=== PATIENT | female | born 1985 | race Caucasian/White ===

== ENCOUNTER 2017-01-19 07:46 | Inpatient (IN) | payer BC ==
[2017-01-19] MEDS ORDERED: OXYTOCIN 10 UNIT/ML 1 ML VIAL IM PRN (10:47)
[2017-01-19] MEDS ORDERED: METHYLERGONOVINE 0.2 MG/ML 1 ML AMP IM PRN (10:47)
[2017-01-19] MEDS ORDERED: LIDOCAINE 1% (PF) 10 MG/ML (30 ML SDV) SQ PRN (10:47)
[2017-01-19] MEDS ORDERED: TERBUTALINE 1 MG/ML VIAL SQ PRN (10:47)
[2017-01-19] MEDS ORDERED: CARBOPROST TROMETHAMINE 250 MCG/ML 1 ML AMP IM PRN (10:47)
[2017-01-19] MEDS ORDERED: PENICILLIN G POTASSIUM 5,000,000 UNIT in DEXTROSE 5% IN WATER 100 ML IV STA ×2 (10:50)
[2017-01-19] MEDS: LACTATED RINGERS 1,000 ML IV SCH ×2 (11:00→13:11)
[2017-01-19 11:23] LABS: Basophils % (A) 0 %; CH 30.6; CHCM 32.6; Eosinophils # (A) 0.1 k/uL (0-0.7); Eosinophils % (A) 0 %; HCT 38.8 % (34.0-46.0); HDW 2.46; HGB 12.5 gm/dL (11.4-16.0); Luc # (Auto) 0.21; Luc % (Auto) 1; Lymphocytes # (A) 1.8 k/uL (1.0-4.8); Lymphocytes % (A) 11 %; MCH 30.5 pg (25.0-35.0); MCHC 32.3 g/dL (31.0-37.0); MCV 94.4 fL (80.0-100.0); Mean Platelet Volume 7.1; Monocytes # (A) 0.6 k/uL (0-1.0); Monocytes % (A) 4 %; Neutrophils # (A) 12.9 k/uL (1.3-7.7); Neutrophils % (A) 83 %; RBC 4.11 m/uL (3.80-5.40); RDW 13.6 % (11.5-15.5); WBC 15.5 k/uL (3.8-10.6); WBC (Perox) 15.82
[2017-01-19] MEDS ORDERED: BUTORPHANOL 1 MG/ML 1 ML VIAL IV PRN (12:19)
[2017-01-19 12:21] VITALS: BMI 31.8
--- NOTE | 2017-01-19 12:26 | P.HPOB ---
History of Present Illness H&P Date: 01/19/17 Chief Complaint: 37-0/7 weeks, labor The patient is a 31-year-old 3 para 0111 who presents at 37-0/7 weeks as established by last menstrual period and confirmed by second trimester ultrasound. She reports having had moderate back pain and irregular cramping last evening but was able to sleep through the night. She awoke with increased contractions and discomfort and presented to labor and delivery. She presents to labor and delivery with irregular contractions and is found to have made cervical change in triage. Initially all signs were reassuring though she has had occasional episodes of flat heart tones with mild indeterminate decelerations. She made cervical change from 4-7 cm in the triage area and was admitted. She is known to be group B strep positive. Her has otherwise been uncomplicated and she has a history of a previous delivery at 36+ weeks. Obstetrical history 3 para 0111 with 1 previous 36+ week delivery with a history of rapid labor. She otherwise had one early spontaneous miscarriage not requiring D&C. Current statistics are listed in history of present illness. EDC of 02/09/2017 was established by last menstrual period and confirmed by second trimester ultrasound. Laboratory workup demonstrates a blood type of O+ with a negative antibody screen. Rubella status is immune. All other laboratory workup is normal aside from a positive urine culture for group B strep which was treated on several occasions during the . One hour Glucola was within normal limits and group B strep status is positive as noted above. Obstetrical history: Unremarkable with no history of any infections to include STDs area Review of Systems Review of systems is confined to history of present illness. Past Medical History Past Medical History: No Reported History History of Any Multi-Drug Resistant Organisms: None Reported Past Surgical History: No Surgical Hx Reported Past Anesthesia/Blood Transfusion Reactions: No Reported Reaction Past Psychological History: No Psychological Hx Reported Smoking Status: Never smoker Past Alcohol Use History: None Reported Past Drug Use History: None Reported Medications and Allergies Home Medications Medication Instructions Recorded Confirmed Type Pnv,Calcium 72/Iron/Folic Acid 1 tab PO DAILY 01/19/17 01/19/17 History [ Plus Tablet] Allergies Allergy/AdvReac Type Severity Reaction Status Date / Time No Known Allergies Allergy Verified 01/19/17 07:53 Exam - Vital Signs Vital signs: Intake and Output 06/11/0101/19/17 01/19/17 22:59 06:59 14:59 Other: Weight 100.698 kg Patient Weight 01/20/17 06:59 Weight 100.698 kg In general, this is a well-developed, well-nourished white female in no acute distress. Her heart has a regular rhythm and rate without murmur. Her lungs are clear to auscultation bilaterally in all [place]. Her abdomen is gravid, nondistended, has normal active bowel sounds, is soft, nontender, and without any palpable masses aside from uterine fundus. Her extremities are without any cyanosis, clubbing, or edema and are nontender to palpation bilaterally. Digital cervical examination performed by the nursing staff demonstrates her cervix to be 7 cm dilated, 70% dilated, with the vertex in presentation at -2 station. Results Result Diagrams: 01/19/17 11:00 Abnormal Lab Results - Last 24 Hours (Table) 01/19/17 Range/Units 11:00 WBC 15.5 H (3.8-10.6) k/uL Neutrophils # 12.9 H (1.3-7.7) k/uL Assessment and Plan (1) Group B streptococcal infection in Status: Acute (2) Active labor at term Status: Acute Plan: The patient is admitted for active management of labor. Given her group B strep status, antibiotics have been ordered and her membranes will be left intact as long as possible to attempt to achieve 4 hours of antibiotics infused prior to delivery for protection. She will have close maternal and surveillance and expectant management will be practiced. She is a good candidate for either IV or epidural analgesia, whichever she may choose.
[2017-01-19] MEDS: PENICILLIN G POTASSIUM 2,500,000 UNIT in DEXTROSE 5% IN WATER 100 ML IV SCH ×4 (15:42→20:04)
[2017-01-19] MEDS ORDERED: SIMETHICONE 80 MG CHEWABLE PO PRN (18:48)
[2017-01-19] MEDS ORDERED: diphenhydrAMINE 25 MG CAP PO PRN (18:48)
[2017-01-19] MEDS ORDERED: ZOLPIDEM 5 MG TAB PO PRN (18:48)
[2017-01-19] MEDS ORDERED: Acetaminophen-Codeine 300-30mg TAB PO PRN ×2 (18:48)
[2017-01-19] MEDS ORDERED: diphenhydrAMINE 50 MG/ML 1 ML VIAL IVP PRN ×2 (18:48)
[2017-01-19] MEDS ORDERED: HYDROCORTISONE 2.5% RECTAL CREAM 30 GM TUBE RECTAL PRN (18:48)
[2017-01-19] MEDS ORDERED: LANOLIN CREAM 5 GM TUBE TOPICAL PRN (18:48)
[2017-01-19] MEDS ORDERED: ACETAMINOPHEN TAB 325 MG TAB PO PRN (18:48)
[2017-01-19] MEDS ORDERED: diphenhydrAMINE 50 MG CAP PO PRN (18:48)
[2017-01-19] MEDS ORDERED: BENZOCAINE SPRAY 57GM TOPICAL PRN (18:48)
[2017-01-19] MEDS ORDERED: WITCH HAZEL 1 EACH MED..PAD TOPICAL PRN (18:48)
--- NOTE | 2017-01-19 18:52 | P.PROBDLV ---
Vaginal Delivery Note - . Vaginal Delivery Note: The patient is a 31-year-old 2 para 0111 admitted at 37-0/7 weeks by good dating parameters perches admitted in early active labor with all signs reassuring. Her has been uncomplicated though she is group B strep positive. She carried a history of a previous 36 week delivery as well as a history of rapid labor. As a result, her membranes were left intact and penicillin prophylaxis was started for group B strep. After 4 hours of infusion , she underwent artificial rupture of membranes demonstrate clear fluid at which time she was approximate 7 cm dilated. She made fairly rapid progress to complete and 0 to +1 station. She pushed over the course of 5 contractions to a normal spontaneous vaginal delivery of a viable 7 lbs. 7 oz. baby girl with Apgars of 8 at 1 minute and 8 at 5 minutes delivered in the direct occiput anterior position. The placenta was delivered spontaneously, intact, and grossly normal with a grossly normal, centrally inserted three-vessel cord. There was a small second-degree midline laceration noted over the site of a previous laceration which was repaired in standard fashion using 3-0 chromic catgut without difficulty. Estimated blood loss for the case was approximately 250 mL. There were no complications. All sponge, instrument, and needle counts were correct. Both mother and are resting comfortably in recovery though the has been taken to the special care nursery for observation secondary to some tachypnea and retracting while breathing.
[2017-01-19] MEDS: IBUPROFEN 600 MG TAB PO PRN (19:48)
[2017-01-19] MEDS: SENNOSIDES-DOCUSATE SODIUM 1 EACH TAB PO SCH (20:04)
[2017-01-20] MEDS: IBUPROFEN 600 MG TAB PO PRN ×3 (02:17→23:07)
--- NOTE | 2017-01-20 07:53 | P.PN ---
Subjective Principal diagnosis: day #1. Slept well, minimal to moderate lochia rubra, pain well controlled. Objective - Vital Signs Vital signs: Vital Signs Temp 97.7 F 01/20/17 03:31 Pulse 92 01/20/17 03:31 Resp 19 01/20/17 03:31 BP 110/68 01/20/17 03:31 Pulse Ox 98 01/20/17 00:00 Intake & Output 01/19/17 01/20/17 01/20/17 18:59 06:59 18:59 Intake Total 1000 550 Balance 1000 550 Weight 100.698 kg Intake: IV 1000 250 Lactated Ringers 1,000 ml 1000 250 @ 125 mls/hr IV .Q8H KHARI Rx#:[id number] Oral 300 Other: # Voids 1 1 - Constitutional General appearance: Present: average body habitus, cooperative - EENT Eyes: Present: PERRLA ENT: Present: hearing grossly normal - Neck Neck: Present: normal ROM Thyroid: bilateral: normal size - Respiratory Respiratory: bilateral: CTA - Cardiovascular Rhythm: regular - Gastrointestinal General gastrointestinal: Present: normal bowel sounds - Integumentary Integumentary: Present: normal - Neurologic Neurologic: Present: CNII-XII intact - Musculoskeletal Musculoskeletal: Present: gait normal, strength equal bilaterally - Psychiatric Psychiatric: Present: A&O x's 3, appropriate affect, intact judgment & insight - Labs CBC & Chem 7: 01/19/17 11:00 Labs: Abnormal Lab Results - Last 24 Hours (Table) 01/19/17 Range/Units 11:00 WBC 15.5 H (3.8-10.6) k/uL Neutrophils # 12.9 H (1.3-7.7) k/uL Assessment and Plan Plan: day #1. Continue care. Y Alvin discharge home tomorrow, on antibiotics today. Time with Patient: Less than 30
[2017-01-20 09:51] VITALS: RESP 16
[2017-01-20] MEDS: SENNOSIDES-DOCUSATE SODIUM 1 EACH TAB PO SCH ×2 (14:37→19:55)
[2017-01-21] MEDS: SENNOSIDES-DOCUSATE SODIUM 1 EACH TAB PO SCH (08:04)
--- NOTE | 2017-01-21 08:53 | P.DS ---
Providers Date of admission: 01/19/17 10:46 Expected date of discharge: 01/21/17 Attending physician: Armida Larkin [facility] Course: This is a 31-year-old white female 2 para 1001 EDC 02/09/2017 at 37 weeks gestation. Patient had a history of premature rupture of membranes, and has done well with conservative management. She presented in active labor. Artificial amniorrhexis revealed clear fluid. She went on to deliver vaginally a liveborn female infant with scores of 8 and 8 at one and 5 minutes respectively. weighed 7 lbs. 7 oz. or 3380 g. There was a small first- degree perineal laceration easily repaired. Please see dictated delivery note for details. Patient is doing well this morning. She is voiding, ambulating and passing flatus without difficulty. Vital signs are stable and she is afebrile. Fundus is firm and in the midline, symmetric and 18 week size. Extremities are negative for edema. Breast-feeding is going well. The is doing well in this nursery, and is receiving antibiotics at this time. Likely discharge home for infant tomorrow. Patient is being discharged home today in very good condition. She will follow- up with me in the office in 6 weeks. I have reminded her no intercourse, tampons or douching. She will use [id number] ibuprofen products as needed for pain, 200 mg pills, 3 every 6 hours when necessary. I've asked her to call me with any fevers shakes or chills, foul smelling or copious lochia, with the passage of large blood clots, with any pain not alleviated by ibuprofen , or indeed with any concerns. We have reviewed the options for contraception which she will consider, and we will discuss this further in the office. Patient Condition at Discharge: Good Plan - Discharge Summary New Discharge Prescriptions: No Action Pnv,Calcium 72/Iron/Folic Acid [ Plus Tablet] 1 tab PO DAILY Discharge Medication List Pnv,Calcium 72/Iron/Folic Acid [ Plus Tablet] 1 tab PO DAILY 01/19/17 [ History] Follow up Appointment(s)/Referral(s): Armida Larkin MD [STAFF PHYSICIAN] - 6 Weeks Discharge Disposition: HOME SELF-CARE
[2017-01-21 16:43] VITALS: BP 112/71; PULSE 78; TEMP 97.6
== END 2017-01-21 16:30 | disposition home or self-care (01) | DRG 775 ==
LOC: FBPOP 07:46 → 4FBP 10:46
PROVIDERS: ADMIT Obstetrics & Gynecology; ATTEND Obstetrics & Gynecology
PROC: 10E0XZZ Delivery of Products of Conception, External Approach (ICD-10-PCS; principal; 2017-01-19)
PROC: 0HQ9XZZ Repair Perineum Skin, External Approach (ICD-10-PCS; 2017-01-19)
PROC: 10907ZC Drainage of Amniotic Fluid, Therapeutic from Products of Conception, Via Natural or Artificial Opening (ICD-10-PCS; 2017-01-19)
DX: O70.0 First degree perineal laceration during delivery (principal); O09.219 Supervision of pregnancy with history of pre-term labor, unspecified trimester; B95.1 Streptococcus, group B, as the cause of diseases classified elsewhere; O98.819 Other maternal infectious and parasitic diseases complicating pregnancy, unspecified trimester; O99.824 Streptococcus B carrier state complicating childbirth; Z37.0 Single live birth; Z3A.37 37 weeks gestation of pregnancy
CPT/HCPCS: 85025; 88307

== ENCOUNTER 2017-01-25 11:30 | Emergency (ER) | payer BC ==
--- NOTE | 2017-01-25 12:19 | ED ---
Extremity Problem HPI - General Chief complaint: Extremity Problem,Nontraumatic Stated complaint: possible blood clots in leg/sent by Time Seen by Provider: 01/25/17 11:39 Source: patient Mode of arrival: ambulatory Limitations: no limitations - History of Present Illness Initial comments: This patient is a 31-year-old woman who presents to be evaluated for which she is concerned about possibility of DVT. The patient had a vaginal delivery 6 days ago, and then proximally 3 days ago noted that she had some tender swollen areas to the left and right leg that she thought were pains. She states that when they did not get better she spoke with her stock selector who recommended she be seen about these. The patient denies any amci calf pain. She has not had any chest symptoms, including no cough, hemoptysis, dyspnea, palpitations, lightheadedness or syncope. Patient denies previous history of DVT or PE. MD Complaint: extremity pain Onset/Timin -: days(s) Location: bilateral lower extremity History of Same: No -: No fever, No associated dyspnea, No associated chest pain Radiation: none Quality: dull Consistency: constant Improves with: nothing Worsens with: nothing Associated Symptoms: denies other symptoms - Related Data Home Medications Medication Instructions Recorded Confirmed Pnv,Calcium 72/Iron/Folic Acid 1 tab PO DAILY 01/19/17 01/25/17 [ Plus Tablet] Allergies Allergy/AdvReac Type Severity Reaction Status Date / Time No Known Allergies Allergy Verified 01/25/17 12:17 Review of Systems ROS Statement: Those systems with pertinent positive or pertinent negative responses have been documented in the HPI. ROS Other: All systems not noted in ROS Statement are negative. Constitutional: Denies: fever, chills Respiratory: Denies: cough, dyspnea, hemoptysis Cardiovascular: Denies: chest pain, palpitations, edema, syncope Gastrointestinal: Denies: abdominal pain, vomiting Genitourinary: Denies: dysuria Skin: Denies: rash, lesions, change in color Neurological: Denies: headache, weakness, numbness, paresthesias Hematological/Lymphatic: Denies: easy bleeding Past Medical History Past Medical History: No Reported History History of Any Multi-Drug Resistant Organisms: None Reported Past Surgical History: No Surgical Hx Reported Past Anesthesia/Blood Transfusion Reactions: No Reported Reaction Past Psychological History: No Psychological Hx Reported Smoking Status: Never smoker Past Alcohol Use History: None Reported Past Drug Use History: None Reported - Past Family History Father Family Medical History: No Reported History General Exam Limitations: no limitations General appearance: alert, in no apparent distress Head exam: Present: atraumatic, normocephalic Eye exam: Present: normal appearance. Absent: scleral icterus, conjunctival injection Respiratory exam: Present: normal lung sounds bilaterally. Absent: respiratory distress, wheezes, rales, rhonchi, stridor Cardiovascular Exam: Present: regular rate, normal rhythm, normal heart sounds. Absent: systolic murmur, diastolic murmur, rubs, gallop Extremities exam: Present: normal inspection, normal capillary refill, other ( The patient does have what appear to be a couple of areas of superficial phlebitis, the first is the posterolateral aspect of the left leg just proximal to the knee, and the second is in the medial aspect of the right thigh at about the midportion. There is no Homans sign. There is no delay in capillary refill , the peripheral pulses are strong.). Absent: pedal edema, calf tenderness Neurological exam: Present: alert. Absent: motor sensory deficit Skin exam: Present: warm, dry, intact, normal color. Absent: rash Course Vital Signs 01/25/17 11:45 Temperature 97.9 F Pulse Rate 71 Respiratory 20 Rate Blood Pressure 115/70 Disposition Clinical Impression: Thrombophlebitis Disposition: HOME SELF-CARE Condition: Fair Instructions: Superficial Thrombophlebitis (ED) Referrals: Alfreda Whalen MD [Primary Care Provider] - 1-2 days
--- NOTE | 2017-01-25 13:14 | US ---
EXAMINATION TYPE: US venous doppler duplex LE DATE OF EXAM: 01/25/2017 1:02 PM COMPARISON: NONE CLINICAL HISTORY: Pain, R/O DVT. Localized area of redness bilaterally inside lower thighs. SIDE PERFORMED: Bilateral TECHNIQUE: The lower extremity deep venous system is examined utilizing real time linear array sonog phil with graded compression, doppler sonography and color-flow sonography. VESSELS IMAGED: External Iliac Vein (EIV) Common Femoral Vein Deep Femoral Vein Greater Saphenous Vein * Femoral Vein Popliteal Vein Proximal Calf Veins (* superficial vessels) bilaterally at area of concern, lower inside thigh, there are thrombosed varicosities. Rouleaux flow noted throughout all vessels. Small fluid collection right pop fossa measuring 2.9 x 0.8 x 2.7 cm. Right Leg: Negative for DVT Left Leg: Negative for DVT Grayscale, color doppler, spectral doppler imaging performed of the deep veins of the lower extremiti es. There is normal flow, compressibility, vascular waveforms bilaterally IMPRESSION: No ultrasound evidence for acute DVT in either lower extremity. Small right-sided poplite al cyst noted. Suspect thrombosed superficial or varicose veins in the lower inner thigh bilaterally as there is tubular shaped structures with heterogeneous hypoechoic material that show absent color f low.
[2017-01-25 14:00] VITALS: BP 117/79; PULSE 76; RESP 18; TEMP 97.6
== END 2017-01-25 13:55 | disposition home or self-care (01) ==
LOC: EC 11:30
DX: I80.03 Phlebitis and thrombophlebitis of superficial vessels of lower extremities, bilateral (principal); Z79.899 Other long term (current) drug therapy
CPT/HCPCS: 93970; 99283